=== PATIENT | male | born 1995 | race Caucasian/White ===

== ENCOUNTER 2020-03-01 20:15 | Emergency (ER) | payer SELFPAY ==
[~2020-03-01] VITALS: Ht 177.8 cm; Wt 136.7 kg
[2020-03-01 20:16] VITALS: BP 138/87; Ht 177.8 cm; Wt 136.7 kg
== END 2020-03-01 21:30 | disposition home or self-care (01) ==
LOC: ED 20:15
DX: U07.1 COVID-19 (principal); B34.9 Viral infection, unspecified; Z90.09 Acquired absence of other part of head and neck
CPT/HCPCS: U0003-CS

== ENCOUNTER 2020-04-05 20:48 | Emergency (ER) | payer SELFPAY ==
[~2020-04-05] VITALS: Ht 180.3 cm; Wt 142.4 kg
[2020-04-05 21:08] VITALS: Ht 180.3 cm; Wt 142.4 kg
[2020-04-06 00:20] VITALS: BP 121/67
== END 2020-04-06 00:20 | disposition home or self-care (01) ==
LOC: ED 20:48
DX: S61.211A Laceration without foreign body of left index finger without damage to nail, initial encounter (principal); Z90.89 Acquired absence of other organs; W23.0XXA Caught, crushed, jammed, or pinched between moving objects, initial encounter; Y93.89 Activity, other specified; Y92.89 Other specified places as the place of occurrence of the external cause; Y99.8 Other external cause status
CPT/HCPCS: J2001; Q0092

== ENCOUNTER 2020-04-07 13:04 | Emergency (ER) | payer MEDICAID ==
[~2020-04-07] VITALS: Ht 177.8 cm; Wt 145.6 kg
[2020-04-07 13:18] VITALS: BP 136/90; Ht 177.8 cm; Wt 145.6 kg
== END 2020-04-07 15:26 | disposition home or self-care (01) ==
LOC: ED 13:04
DX: S61.211D Laceration without foreign body of left index finger without damage to nail, subsequent encounter (principal); W26.8XXD Contact with other sharp object(s), not elsewhere classified, subsequent encounter

== ENCOUNTER 2020-04-12 11:47 | Emergency (ER) | payer MEDICAID ==
[~2020-04-12] VITALS: Ht 177.8 cm; Wt 146.5 kg
[2020-04-12 14:03] VITALS: BP 125/67
== END 2020-04-12 14:03 | disposition home or self-care (01) ==
LOC: ED 11:47
DX: S61.211D Laceration without foreign body of left index finger without damage to nail, subsequent encounter (principal); Z90.89 Acquired absence of other organs; X58.XXXD Exposure to other specified factors, subsequent encounter